=== PATIENT | female | born 2000 | race American Indian/Alaskan Native ===

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

== ENCOUNTER 2019-11-22 12:13 | Emergency (ER) | payer SELFPAY ==
[2019-11-22 12:39] VITALS: BP 132/75
--- NOTE | 2019-11-22 14:53 | Emergency Department Report ---
ED Lower Extremity HPI - General Chief Complaint: Extremity Injury, Lower Stated Complaint: LEFT LEG CURTIS Time Seen by Provider: 11/22/19 14:50 Source: patient Mode of arrival: Ambulatory Limitations: No Limitations - History of Present Illness Initial Comments: Patient is a 18-year-old female presents emergency room with complaints of left calf pain that began a few days ago. Patient states that she was dancing and did a split and injured her left calf. She states that she has had pain with walking. She states that she has tried [id number] medications and Biofreeze but continues to have pain. She has never injured this leg in the past. She denies any numbness or weakness. She denies any recent travel, recent surgery, hormone use. She denies any past medical history. No allergies to medications. - Related Data Previous Rx's Medication Instructions Recorded Last Taken Type Acetaminophen [Tylenol] 325 mg PO TID #30 capsule 12/18/18 Unknown Rx Metoclopramide [Reglan] 10 mg PO TID #30 tab 12/18/18 Unknown Rx Naproxen [EC-Naprosyn] 500 mg PO BID PRN #14 tablet. 11/22/19 Unknown Rx Allergies Allergy/AdvReac Type Severity Reaction Status Date / Time No Known Allergies Allergy Verified 12/18/18 02:25 ED Review of Systems ROS: Stated complaint: LEFT LEG CURTIS Other details as noted in HPI Comment: All other systems reviewed and negative ED Past Medical Hx - Past Medical History Previous Medical History?: No - Surgical History Past Surgical History?: No - Social History Smoking Status: Never Smoker - Medications Home Medications: Home Medications Medication Instructions Recorded Confirmed Last Taken Type Acetaminophen [Tylenol] 325 mg PO TID #30 capsule 12/18/18 Unknown Rx Metoclopramide [Reglan] 10 mg PO TID #30 tab 12/18/18 Unknown Rx Naproxen [EC-Naprosyn] 500 mg PO BID PRN #14 tablet. 11/22/19 Unknown Rx ED Physical Exam - General Limitations: No Limitations General appearance: alert, in no apparent distress - Head Head exam: Present: atraumatic, normocephalic - Eye Eye exam: Present: normal appearance - ENT ENT exam: Present: mucous membranes moist - Extremities Exam Extremities exam: Present: other (ttp, edema, and ecchymosis present to the superior portion of the left calf, FROM of the LLE, pain with dorsiflexion and plantarflexion of the left calf, neurovascularly intact, no edema present down the left lower leg) - Neurological Exam Neurological exam: Present: alert, oriented X3 - Psychiatric Psychiatric exam: Present: normal affect, normal mood - Skin Skin exam: Present: warm, dry, intact ED Course Vital Signs 11/22/19 12:35 Temperature 98.1 F Pulse Rate 92 H Respiratory 20 Rate Blood Pressure 132/75 O2 Sat by Pulse 99 Oximetry ED Lower Extremity MDM - Medical Decision Making Patient is a 18-year-old female presents emergency room with complaints of left calf pain that began a few days ago. Patient states that she was dancing and did a split and injured her left calf. She states that she has had pain with walking. She states that she has tried qefz-nqr-ilnfqen medications and Biofreeze but continues to have pain. She has never injured this leg in the past. She denies any numbness or weakness. She denies any recent travel, recent surgery, hormone use. She denies any past medical history. No allergies to medications. VSS. on exam: ttp, edema, and ecchymosis present to the superior portion of the left calf, FROM of the LLE, pain with dorsiflexion and plantarflexion of the left calf, neurovascularly intact, no edema present down the left lower leg. examination consistent with calf strain. advised pt that she would need to follow up with an orthopedic doctor for further evaluation and possible MRI to r/o tear. pt placed in lenin bandage and given crutches and remained neurovascularly intact. pt given prescription for naproxen. advised pt please take medication as prescribed as needed. may use ice for 15 minutes at a time, rest, elevation of the leg. do not wear lenin bandage too tightly or while sleeping. follow up with an orthopedic doctor. it is very important that you follow up. do not bear weight on the leg until you are cleared by an orthopedic doctor. return to the emergency room for any new or worsening symptoms. - Differential Diagnosis strain, sprain, fx, dislocation Critical care attestation.: If time is entered above; I have spent that time in minutes in the direct care of this critically ill patient, excluding procedure time. ED Disposition Clinical Impression: Strain of calf muscle Qualifiers: Encounter type: initial encounter Laterality: left Qualified Code(s): S86.812A - Strain of other muscle(s) and tendon(s) at lower leg level, left leg, initial encounter Disposition: TO HOME OR SELFCARE Is pt being admited?: No Does the pt Need Aspirin: No Condition: Stable Instructions: Muscle Strain (ED), RICE Therapy (ED) Additional Instructions: please take medication as prescribed as needed. may use ice for 15 minutes at a time, rest, elevation of the leg. do not wear lenin bandage too tightly or while sleeping. follow up with an orthopedic doctor. it is very important that you follow up. do not bear weight on the leg until you are cleared by an orthopedic doctor. return to the emergency room for any new or worsening symptoms. Prescriptions: Naproxen [EC-Naprosyn] 500 mg PO BID PRN #14 tablet.dr CALVILLO Reason: pain Referrals: GET HUERTA MD [Staff Physician] - 2-3 Days [facility] [Provider Group] - 2-3 Days Time of Disposition: 14:51 Print Language: THAI
== END 2019-11-22 15:11 | disposition home or self-care (01) ==
LOC: ED 12:13
DX: S86.812A Strain of other muscle(s) and tendon(s) at lower leg level, left leg, initial encounter (principal); X58.XXXA Exposure to other specified factors, initial encounter; Y93.89 Activity, other specified; Y92.89 Other specified places as the place of occurrence of the external cause; Y99.8 Other external cause status
CPT/HCPCS: 99283